=== PATIENT | male | born 1995 | race Caucasian/White ===

== ENCOUNTER 2017-09-24 12:11 | Emergency (ER) | payer MEDICAID ==
[~2017-09-24] VITALS: Ht 182.9 cm; Wt 83.9 kg
[2017-09-24] MEDS ORDERED: ACETAMINOPHEN ES 500 MG TABLET PO ONE (14:00)
--- NOTE | 2017-09-24 14:05 | NUR ---
MSE COMPLETED, MEDS ADMIN. PT D/C'D HOME, ACI/RX X1 GIVEN. PT AMBULATED W/O DIFF/TOOK ALL BELONGINGS.
[2017-09-24 14:07] VITALS: BP 122/74
[2017-09-24] MEDS ORDERED: ACETAMINOPHEN ES 500 MG TABLET ONE (14:17)
== END 2017-09-24 14:08 | disposition home or self-care (01) ==
LOC: ER 12:16
DX: S20.229A Contusion of unspecified back wall of thorax, initial encounter (principal); S80.01XA Contusion of right knee, initial encounter; S80.12XA Contusion of left lower leg, initial encounter; V19.40XA Pedal cycle driver injured in collision with unspecified motor vehicles in traffic accident, initial encounter; Y93.55 Activity, bike riding; Y92.410 Unspecified street and highway as the place of occurrence of the external cause; Y99.8 Other external cause status
CPT/HCPCS: 72100; 73564; 73590; 99284; A4663